=== PATIENT | male | born 1955 | race Caucasian/White ===

== ENCOUNTER 2017-05-16 18:53 | Emergency (ER) | payer OTHER ==
[~2017-05-16] VITALS: Ht 185.4 cm; Wt 72.3 kg
[2017-05-16 18:56] VITALS: TEMP 36.5; Ht 185.4 cm; Wt 72.3 kg
[2017-05-16] MEDS ORDERED: OXYCODONE HCL IR 5 MG TAB (IMMEDIATE RELEASE) PO STA (19:04)
[2017-05-16] MEDS ORDERED: ACET-1256 PO (19:33)
[2017-05-16] MEDS ORDERED: LVMI SC ×2 (19:33)
[2017-05-16] MEDS ORDERED: LSN40 PO (19:33)
[2017-05-16] MEDS ORDERED: NVLG SC ×3 (19:33)
[2017-05-16] MEDS ORDERED: CARV6.252 PO (19:33)
--- NOTE | 2017-05-16 19:43 | DIAGNOSTIC IMAGING REPORT ---
ADDENDUM This report is only for the accession number of the left shoulder and not for the right shoulder. No fracture or dislocation within the left shoulder. Electronically signed by: Gerson Andersen M.D. 05/16/2017 7:49 PM Dictated Date/Time: 05/16/2017 7:48 PM ORIGINAL REPORT BILATERAL SHOULDERS 3 VIEWS EACH HISTORY: Bilateral shoulder pain/fall COMPARISON: None. FINDINGS: There is no fracture or dislocation. Soft tissues are unremarkable. No radiopaque foreign bodies. The right and left clavicle are intact. Punctate calcifications adjacent to the humeral heads are consistent with bilateral supraspinatus calcific tendinitis. IMPRESSION: No acute fracture or dislocation within the right or left shoulder. Electronically signed by: Gerson Andersen M.D. 05/16/2017 7:42 PM Dictated Date/Time: 05/16/2017 7:40 PM
--- NOTE | 2017-05-16 19:49 | DIAGNOSTIC IMAGING REPORT ---
RIGHT SHOULDER 3 VIEWS HISTORY: shoulder pain/fall Right COMPARISON: None. FINDINGS: There is no fracture or dislocation. Punctate calcification adjacent to the humeral head consistent with supraspinatus calcific tendinitis. No radiopaque foreign bodies. IMPRESSION: No fracture or dislocation within the right shoulder. Electronically signed by: Gerson Andersen M.D. 05/16/2017 7:48 PM Dictated Date/Time: 05/16/2017 7:47 PM
--- NOTE | 2017-05-16 19:52 | EMERGENCY ROOM VISIT NOTE ---
ED Visit Note First contact with patient: 19:00 CHIEF COMPLAINT: Bilateral shoulder pain HISTORY OF PRESENT ILLNESS: This 62-year-old male presents the ER with chief complaint of bilateral shoulder pain. The patient states that he was at work yesterday and was trying to turn a wrench with both hands and it was very hard. The wrench slipped and he fell towards his right side and landed directly on the concrete floor on his right shoulder. Since that time the patient has had pain in both his shoulders. Right slightly greater than left. The patient denies any numbness and saline and his arm. The patient denies any neck pain. The patient states that he has been taking both Tylenol and ibuprofen with little relief of the pain. He could not sleep last night due to the pain. He currently rates his pain an 8 out of 10. REVIEW OF SYSTEMS: 6 system review was performed and was negative unless stated otherwise in history of present illness. PMH: The patient is healthy; diabetic, lupus of the skin, hypertension SOCIAL HISTORY: Patient lives with his . The patient admits to tobacco use and occasional alcohol use. PHYSICAL EXAM: Vital Signs: Were reviewed Reviewed nurse's notes. GEN.: 62-year -old white male appears older than stated age. MENTAL Status: Alert and oriented 3. LEFT SHOULDER: No gross bony deformity noted. No erythema or edema noted. The patient has point tenderness over the lateral aspect of the humeral head. Otherwise nontender. The patient is full range of motion. Muscle strength is 5 out of 5 as compared to the right. RIGHT shoulder: No gross bony deformity noted. No erythema or edema noted. Patient is point tenderness over the lateral humeral head otherwise nontender. Full range of motion. CERVICAL: PATIENT NONTENDER TO PALPATION OVER THE SPINOUS PROCESSES IN THE PARAVERTEBRAL REGION. FULL RANGE OF MOTION. EMERGENCY DEPARTMENT COURSE: The patient was evaluated. The patient's EMR medication list were reviewed. The patient was given OxyIR 5 mg by mouth for pain. X-ray of the bilateral shoulders was ordered and interpreted by the radiologist and myself. DIAGNOSTICS:BILATERAL SHOULDERS 3 VIEWS EACH HISTORY: Bilateral shoulder pain/fall COMPARISON: None. FINDINGS: There is no fracture or dislocation. Soft tissues are unremarkable. No radiopaque foreign bodies. The right and left clavicle are intact. Punctate calcifications adjacent to the humeral heads are consistent with bilateral supraspinatus calcific tendinitis. IMPRESSION: No acute fracture or dislocation within the right or left shoulder. Electronically signed by: Gerson Andersen M.D. 05/16/2017 7:42 PM Dictated Date/Time: 05/16/2017 7:40 PM The patient was informed of the findings. The patient was offered an arm sling but declined. The patient was given an OxyIR home pack to take as directed. Patient was discharged home in stable condition with his driving. DIAGNOSIS: Bilateral shoulder pain DISCHARGE INSTRUCTIONS & TREATMENT: Ibuprofen 600 mg every 6 hours with food. May also take Tylenol in addition to the ibuprofen. For more severe pain take the OxyIR as directed. If symptoms are not improving in 3-4 days, follow-up with family doctor. Current/Historical Medications Scheduled Carvedilol (Coreg), 6.25 MG PO BID Insulin Aspart (Novolog), 2 UNITS SC QDB Insulin Aspart (Novolog), 4 UNITS SC QDL Insulin Aspart (Novolog), 6-7 UNITS SC QDD Insulin Detemir (Levemir), 8 UNITS SC QAM Insulin Detemir (Levemir), 10 UNITS SC QPM Lisinopril (Lisinopril), 40 MG PO DAILY Scheduled PRN Acetaminophen (Tylenol), 500-1,500 MG PO DIRECTED PRN for Pain Allergies Coded Allergies: No Known Allergies (Unverified , 05/16/17) Vital Signs Date Time Temp Pulse Resp B/P (MAP) Pulse Ox O2 Delivery O2 Flow Rate FiO2 05/16/17 18:56 36.5 125 18 158/81 92 Room Air Medications Administered Medications (Trade) Dose Ordered Sig/Mehreen Route Start Time Stop Time Status Last Admin Dose Admin Oxycodone HCl (Roxicodone Immediate Rel Tab) 5 mg NOW STAT PO 05/16/17 19:04 05/16/17 19:05 DC 05/16/17 19:12 5 MG Departure Information Referrals Lela Pierre M.D. (PCP) Patient Instructions [facility]
[2017-05-16] MEDS ORDERED: OXYCODONE IR HOME PACK PO ONE (20:00)
[2017-05-16 20:03] VITALS: BP 147/84; PULSE 98; O2SAT 93
== END 2017-05-16 20:03 | disposition home or self-care (01) ==
LOC: C.EDB 18:55 → C.EDD 20:03
DX: M25.511 Pain in right shoulder (principal); M25.512 Pain in left shoulder

== ENCOUNTER 2017-05-24 16:12 | Emergency (ER) | payer OTHER ==
[~2017-05-24] VITALS: Ht 185.4 cm; Wt 70.9 kg
[~2017-05-24 16:12] MED LIST: ACET-1256 PO; CARV6.252 PO; LSN40 PO; LVMI SC; NVLG SC
[2017-05-24 16:14] VITALS: TEMP 36.7; Ht 185.4 cm; Wt 70.9 kg
[2017-05-24] MEDS ORDERED: TRMCR515 TOP (16:47)
[2017-05-24 17:05] LABS: BASO % 0.5 %; BASO ABS # 0.03 K/uL (0-0.2); COMPLETE YES; EOS % 2.4 %; HEMATOCRIT 34.7 % (42-52); IG% 0.2 %; LYMPH % 28.7 %; LYMPH ABS # 1.65 K/uL (1.2-3.4); MEAN CORPUSCULAR HEMOGLOBIN 31.8 pg (25-34); MEAN CORPUSCULAR HGB CONC 34.6 g/dl (32-36); MEAN PLATELET VOLUME 10.1 fL (7.4-10.4); MONO % 11.1 %; NEUT % 57.1 %; PLATELET COUNT 175 K/uL (130-400); RED BLOOD COUNT 3.77 M/uL (4.7-6.1); WHITE BLOOD COUNT 5.74 K/uL (4.8-10.8)
[2017-05-24] MEDS ORDERED: SULFAMETHOXAZOLE/TRIMETHOPRIM DS 800/160MG TAB PO STA (17:22)
[2017-05-24 17:24] LABS: BUN/CREATININE RATIO 21.7 (10-20); CALCIUM 8.2 mg/dl (8.5-10.1); CREATININE 0.94 mg/dl (0.60-1.40); POTASSIUM 4.4 mmol/L (3.5-5.1)
[2017-05-24 17:27] LABS: ALB/GLOB RATIO 1.1 (0.9-2)
[2017-05-24] MEDS ORDERED: CEPHALEXIN MONOHYDRATE 250 MG CAP PO ONE (17:30)
--- NOTE | 2017-05-24 18:13 | EMERGENCY ROOM VISIT NOTE ---
History Report prepared by Shakira: Janeen Godfrey Under the Supervision of: Dr. Shell Coleman D.O. First contact with patient: 16:17 Chief Complaint: TOE PAIN, INJURY Stated Complaint: RT FOOT,MIDDLE TOE PAIN History of Present Illness The patient is a 62 year old male who presents to the Emergency Room with complaints of worsening right middle toe pain starting last night. The patient has a history of diabetes and has had wounds on his feet before. He checks his feet every night. Two nights ago, he did not notice anything on his feet. Last night he noticed a bump on his toe. Throughout the day today, the bump has grown red and started becoming increasingly painful. He denies any abnormalities to his left foot. He denies wearing any new shoes or socks. He reports having some right knee pain several days ago but states he intermittently develops knee pain. He now has pain in the ball of his right foot. He denies fever, chills, vomiting, diarrhea, or SOB. His sugars have been under control recently. He has a history of lupus. He denies any history of MRSA. No history of osteomyelitis. Source of History: patient Onset: last night Position: toe(s) (right middle) Quality: other (redness, pain) Timing: worsening Associated Symptoms: No fevers, No chills, No SOB, No vomiting, No diarrhea Note: Pt reports right foot pain. Pt denies left foot pain. Review of Systems See HPI for pertinent positives & negatives. A total of 10 systems reviewed and were otherwise negative. Past Medical & Surgical Medical Problems: (1) Diabetes (2) Lupus Family History FHx: cancer Heart disease Social History Smoking Status: Current Every Day Smoker Marital Status: Occupation Status: employed Current/Historical Medications Scheduled Carvedilol (Coreg), 6.25 MG PO BID Cephalexin Monohydrate (Keflex), 500 MG PO QID Insulin Aspart (Novolog), 2 UNITS SC QDB Insulin Aspart (Novolog), 4 UNITS SC QDL Insulin Aspart (Novolog), 6-7 UNITS SC QDD Insulin Detemir (Levemir), 8 UNITS SC QAM Insulin Detemir (Levemir), 10 UNITS SC QPM Lisinopril (Lisinopril), 40 MG PO DAILY Sulfa/Trimethoprim (Bactrim Ds 800MG/160MG), 1 TAB PO BID Scheduled PRN Acetaminophen (Tylenol), 500-1,500 MG PO DIRECTED PRN for Pain Oxycodone/Acetaminophen 5MG/325MG (Percocet 5MG/325MG), 1 TAB PO Q6 PRN for Pain Triamcinolone Acet (Triamcinolone Acetonide), 1 APPLN TOP BID PRN for RASH Allergies Coded Allergies: No Known Allergies (Unverified , 05/24/17) Physical Exam Vital Signs Date Time Temp Pulse Resp B/P (MAP) Pulse Ox O2 Delivery O2 Flow Rate FiO2 05/24/17 18:32 80 19 174/97 97 05/24/17 17:01 75 17 175/97 96 Room Air 05/24/17 16:14 36.7 72 18 143/82 99 Room Air Physical Exam GENERAL: alert, well appearing, well nourished, no distress, non-toxic EYE EXAM: normal conjunctiva, PERRL and EOM's grossly intact OROPHARYNX: no exudate, no erythema, lips, buccal mucosa, and tongue normal and mucous membranes are moist NECK: supple, no nuchal rigidity, no adenopathy, non-tender LUNGS: Clear to auscultation. Normal chest wall mechanics HEART: no murmurs, S1 normal and S2 normal ABDOMEN: abdomen soft, non-tender, normo-active bowel sounds, no masses, no rebound or guarding. BACK: Back is symmetrical on inspection and there is no deformity, no midline tenderness, no CVA tenderness. SKIN: no rashes and no bruising UPPER EXTREMITIES: upper extremities are grossly normal. LOWER EXTREMITIES: ulcerative lesions to the lateral aspect of the 3rd right toe , no active bleeding, no active drainage, no foul odor, mild erythema to the dorsal aspect of the right toe extending to the dorsum of the right foot distally, no other edema, normal capillary refill, normal pulses, no joint effusions. NEURO EXAM: Normal sensorium, cranial nerves II-XII grossly intact, normal speech, no gross weakness of arms, no gross weakness of legs. Medical Decision & Procedures Laboratory Results 05/24/17 16:55 Red Blood Count 3.77, Mean Corpuscular Volume 92.0, Mean Corpuscular Hemoglobin 31.8, Mean Corpuscular Hemoglobin Concent 34.6, Mean Platelet Volume 10.1, Neutrophils (%) (Auto) 57.1, Lymphocytes (%) (Auto) 28.7, Monocytes (%) (Auto) 11.1, Eosinophils (%) (Auto) 2.4, Basophils (%) (Auto) 0.5, Neutrophils # (Auto ) 3.27, Lymphocytes # (Auto) 1.65, Monocytes # (Auto) 0.64, Eosinophils # (Auto ) 0.14, Basophils # (Auto) 0.03 05/24/17 16:55 Test 05/24/17 16:55 White Blood Count 5.74 K/uL (4.8-10.8) Red Blood Count 3.77 M/uL (4.7-6.1) Hemoglobin 12.0 g/dL (14.0-18.0) Hematocrit 34.7 % (42-52) Mean Corpuscular Volume 92.0 fL (80-100) Mean Corpuscular Hemoglobin 31.8 pg (25-34) Mean Corpuscular Hemoglobin Concent 34.6 g/dl (32-36) Platelet Count 175 K/uL (130-400) Mean Platelet Volume 10.1 fL (7.4-10.4) Neutrophils (%) (Auto) 57.1 % Lymphocytes (%) (Auto) 28.7 % Monocytes (%) (Auto) 11.1 % Eosinophils (%) (Auto) 2.4 % Basophils (%) (Auto) 0.5 % Neutrophils # (Auto) 3.27 K/uL (1.4-6.5) Lymphocytes # (Auto) 1.65 K/uL (1.2-3.4) Monocytes # (Auto) 0.64 K/uL (0.11-0.59) Eosinophils # (Auto) 0.14 K/uL (0-0.5) Basophils # (Auto) 0.03 K/uL (0-0.2) RDW Standard Deviation 42.9 fL (36.4-46.3) RDW Coefficient of Variation 12.7 % (11.5-14.5) Immature Granulocyte % (Auto) 0.2 % Immature Granulocyte # (Auto) 0.01 K/uL (0.00-0.02) Anion Gap 8.0 mmol/L (3-11) Est Creatinine Clear Calc Drug Dose 83.8 ml/min Estimated GFR () 101.7 Estimated GFR (Non- 87.8 BUN/Creatinine Ratio 21.7 (10-20) Calcium Level 8.2 mg/dl (8.5-10.1) Total Bilirubin 0.3 mg/dl (0.2-1) Aspartate Amino Transf (AST/SGOT) 29 U/L (15-37) Alanine Aminotransferase (ALT/SGPT) 36 U/L (12-78) Alkaline Phosphatase 46 U/L (45-117) Total Protein 6.4 gm/dl (6.4-8.2) Albumin 3.4 gm/dl (3.4-5.0) Globulin 3.0 gm/dl (2.5-4.0) Albumin/Globulin Ratio 1.1 (0.9-2) Laboratory results per my review. Medications Administered Medications (Trade) Dose Ordered Sig/Mehreen Route Start Time Stop Time Status Last Admin Dose Admin Cephalexin Monohydrate (Keflex Cap) 500 mg NOW ONCE PO 05/24/17 17:30 05/24/17 17:31 DC 05/24/17 17:56 500 MG Trimethoprim/ Sulfamethoxazole (Septra Ds 800/ 160MG Tab) 1 tab NOW STAT PO 05/24/17 17:22 05/24/17 17:23 DC 05/24/17 17:56 1 TAB Oxycodone/ Acetaminophen (Percocet 5-325mg Tab) 1 tab NOW ONCE PO 05/24/17 18:15 05/24/17 18:16 DC 05/24/17 18:21 1 TAB ED Course 1621: The patient was evaluated in room A10. A complete history and physical exam was performed. 1722: Trimethoprim/Sulfamethoxazole 1 tab PO. 1730: Keflex Cap 500 mg PO. 1731: Upon reevaluation, the patient is feeling better. I discussed the findings and the treatment plan with the patient. He verbalizes agreement and understanding. He was discharged home. 1814: Oxycodone/Acetaminophen 1 tab PO. Medical Decision Differential diagnosis: Etiologies such as cellulitis, abscess, MRSA infection, DVT, necrotizing fasciitis, dermatitis, drug eruption, as well as others were entertained. Medication Reconciliation: I attest that I have personally reviewed the patient' s current medication list. Blood pressure screening: Patient was found to have an elevated blood pressure and was referred to their primary doctor for recheck and further treatment. Patient well-appearing here, no evidence for clinical osteomyelitis, not consistent with nec fasc, no abscess, clinical appearance of wound not consistent with MRSA, no evidence of bacteremia/sepsis. Patient has previously been seen by wound care center and case management will help to arrange close follow-up. Patient started on antibiotics, discussed need for close follow-up, monitoring of the wound, checking of his feet daily, symptoms to watch and return for, risks given diabetic status, he verbalized understanding of this, all questions were answered bedside, and he was agreeable with plan. Impression Primary Impression: Toe ulcer Additional Impression: Diabetes Scribe Attestation The scribe's documentation has been prepared under my direction and personally reviewed by me in its entirety. I confirm that the note above accurately reflects all work, treatment, procedures, and medical decision making performed by me. Departure Information Dispostion Home / Self-Care Prescriptions Oxycodone/Acetaminophen 5MG/325MG (PERCOCET 5MG/325MG) Tab 1 TAB PO Q6 Y for Pain, #10 TAB Prov: Shell Coleman, DO 05/24/17 Sulfa/Trimethoprim (Bactrim Ds 800MG/160MG) Tab 1 TAB PO BID, #14 TAB Prov: Shell Coleman, DO 05/24/17 Cephalexin Monohydrate (Keflex) 500 Mg Cap 500 MG PO QID, #28 CAP Prov: Shell Coleman, DO 05/24/17 Referrals Lela Pierre M.D. (PCP) Patient Instructions My [facility] Additional Instructions Please: Follow up with the wound care clinic as discussed with case management. Please use the antibiotics as prescribed. You may use the pain medication as prescribed, however do not take it and drive. Please leave the dressing in place until you're seen at the wound care clinic. Please avoid getting it wet or any dirt or debris in the wound. If you have any increasing swelling, increasing pain, redness streaking further up the foot, develop fevers or chills , nausea or vomiting, or have any other new concerns, please return the emergency room. 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
[2017-05-24] MEDS ORDERED: OXYCODONE/ACETAMINOPHEN 5-325 TAB PO ONE (18:15)
[2017-05-24] MEDS ORDERED: CEPH500C PO (18:15)
[2017-05-24] MEDS ORDERED: SULF800T23 PO (18:15)
[2017-05-24] MEDS ORDERED: OXYC-57 PO (18:15)
[2017-05-24 18:32] VITALS: BP 174/97; PULSE 80; O2SAT 97
== END 2017-05-24 18:30 | disposition home or self-care (01) ==
LOC: C.EDB 16:13 → C.EDA 18:30
DX: L97.519 Non-pressure chronic ulcer of other part of right foot with unspecified severity (principal); E13.621 Other specified diabetes mellitus with foot ulcer; L97.509 Non-pressure chronic ulcer of other part of unspecified foot with unspecified severity; L93.0 Discoid lupus erythematosus; F17.200 Nicotine dependence, unspecified, uncomplicated; Z79.4 Long term (current) use of insulin

== ENCOUNTER → 2017-10-21 | Outpatient (CLI) | payer OTHER ==
[~2017-10-21] MED LIST changes: +CEPH500C PO; +OXYC-57 PO; +SULF800T23 PO; +TRMCR515 TOP
[2017-10-21 12:11] LABS: ESTIMATED AVERAGE GLUCOSE 272 mg/dl; HA1C FLAG Normal (Normal)
[2017-10-21 12:29] LABS: THYROID STIMULATING HORMONE 0.958 uIu/ml (0.300-4.500)
[2017-10-21 12:38] LABS: CREATININE RANDOM URINE 67.2 mg/dl
[2017-10-21 12:49] LABS: RATIO 31.9 mcg/mg (0-30.0)
== END | disposition home or self-care (01) ==
LOC: C.LABPBG 09:04
PROVIDERS: ATTEND Nurse Practitioner Family
DX: E10.9 Type 1 diabetes mellitus without complications (principal)